=== PATIENT | male | born 1950 | race Caucasian/White ===

== ENCOUNTER → 2023-10-03 09:51 | Outpatient (REF) | payer MEDICARE, OTHER, SELFPAY | LOC: RST 09:51 | PROVIDERS: ATTENDING PHYSICIAN Nurse Practitioner Family | DX: Z00.00 Encounter for general adult medical examination without abnormal findings (principal); R13.10 Dysphagia, unspecified; R07.89 Other chest pain; R05.3 Chronic cough | CPT/HCPCS: 71046; 74230; 92611 ==

== ENCOUNTER → 2023-10-24 10:06 | Outpatient (REF) | payer MEDICARE, OTHER, SELFPAY | LOC: RAD 10:06 | PROVIDERS: ATTENDING PHYSICIAN Nurse Practitioner Family | DX: N40.1 Benign prostatic hyperplasia with lower urinary tract symptoms (principal) | CPT/HCPCS: 76872 ==

== ENCOUNTER → 2024-05-28 12:45 | Outpatient (REF) | payer MEDICARE, OTHER, SELFPAY | LOC: MRI 3T 12:45 | PROVIDERS: ATTENDING PHYSICIAN Surgery; FAMILY PHYSICIAN Internal Medicine | DX: N42.9 Disorder of prostate, unspecified (principal) | CPT/HCPCS: 72197; A9575 ==

== ENCOUNTER → 2024-07-03 10:39 | Outpatient (REF) | payer MEDICARE, OTHER, SELFPAY | LOC: CLAB 10:39 | PROVIDERS: ATTENDING PHYSICIAN Surgery | DX: N42.9 Disorder of prostate, unspecified (principal) | CPT/HCPCS: 88305 ==

== ENCOUNTER → 2024-07-29 09:39 | Outpatient (REF) | payer MEDICARE, OTHER, SELFPAY | LOC: RCS 09:39 | PROVIDERS: ATTENDING PHYSICIAN Internal Medicine Cardiovascular Disease; FAMILY PHYSICIAN Internal Medicine | DX: I25.118 Atherosclerotic heart disease of native coronary artery with other forms of angina pectoris (principal) | CPT/HCPCS: 93017; 93350 ==

== ENCOUNTER 2024-09-15 06:06 | Outpatient (RCR) | payer MEDICARE, OTHER, SELFPAY | END 2024-09-15 23:59 | disposition home or self-care (01) | LOC: RPT 06:06 | PROVIDERS: ATTENDING PHYSICIAN Specialist; FAMILY PHYSICIAN Internal Medicine | DX: C61 Malignant neoplasm of prostate (principal); M62.89 Other specified disorders of muscle; Z73.6 Limitation of activities due to disability; R10.2 Pelvic and perineal pain | CPT/HCPCS: 97163; 97530 ==

== ENCOUNTER 2024-09-28 11:37 | Outpatient (RCR) | payer MEDICARE, OTHER, SELFPAY | END 2024-09-28 23:59 | disposition home or self-care (01) | LOC: RPT 11:37 | PROVIDERS: ATTENDING PHYSICIAN Specialist; FAMILY PHYSICIAN Internal Medicine | DX: C61 Malignant neoplasm of prostate (principal); M62.89 Other specified disorders of muscle; Z73.6 Limitation of activities due to disability; R10.2 Pelvic and perineal pain | CPT/HCPCS: 97140; 97530 ==

== ENCOUNTER 2024-10-06 06:11 | Inpatient (IN) | payer MEDICARE, OTHER, SELFPAY ==
[2024-09-29 11:04] LABS: Hematocrit 45.7 % (39.0-52.0); Hemoglobin 15.6 g/dL (13.0-18.0); Mean Corp Hgb Conc. 34.1 g/dL (33.0-37.0); Mean Corpuscular Hgb 30.8 pg (27.0-31.0); Mean Corpuscular Volume 90.3 fL (80.0-94.0); Mean Platelet Volume 11.1 fL (7.4-10.4); Platelet Count 167 10^3/uL (130-400); Red Blood Cell Count 5.06 10^6/uL (4.70-6.10); Red Cell Dist. Width 12.7 % (11.5-14.5)
[2024-09-29 11:19] LABS: INR 1.03; PT 13.8 Sec (11.4-14.6)
[2024-09-29 11:20] LABS: APTT 27.9 Sec (23.4-35.0)
[2024-09-29 12:00] LABS: Blood Urea Nitrogen 19 mg/dl (9-20); Calcium 10.1 mg/dl (8.4-10.2); Carbon Dioxide 29 mmol/L (22-30); Chloride 103 mmol/L (98-107); Glucose 144 mg/dl (70-99); Potassium 4.7 mmol/L (3.5-5.1); Sodium 139 mmol/L (135-145); eGFR > 60.00
[2024-09-30 13:54] VITALS: BMI 23.1
[2024-10-06] VITALS (18 sets, daily range): BP systolic 114–141; BP diastolic 58–82; BMI 23.1
[2024-10-06 06:55] LABS: Glucose - Point of Care 139 mg/dl (70-99)
[2024-10-06] MEDS: NORMOSOL-R/PLASMALYTE-A 1000 IV ×3 (07:03→20:59)
[2024-10-06] MEDS: NEBCIN 480 MG/100 ML ENEMA 1 BOTTLE RECTAL (07:04)
[2024-10-06] MEDS: TYLENOL 1000 MG PO (07:16)
--- NOTE | 2024-10-06 09:42 | W.IMMPOSTOP ---
Surgical Immed Post Op Note
-
Primary Surgeon: Mary
Assisting Surgeon: Laurel
Pre-op Diagnosis: Prostate cancer
Post-op Diagnosis: Same
Procedure Performed: Radical perineal prostatectomy
Anesthesia Type: GET
Specimen / Cultures: prostate with adnexa, bladder neck and urethral margins
Estimated Blood Loss: 100ml
Complications: None
--- NOTE | 2024-10-06 09:43 | W.IMMPOSTOP ---
Surgical Immed Post Op Note
-
Primary Surgeon: Mary
Assisting Surgeon: Laurel
Pre-op Diagnosis: Prostate cancer
Post-op Diagnosis: Same
Procedure Performed: Radical perineal prostatectomy
Anesthesia Type: GET
Specimen / Cultures: Prostate, bladder neck and urethral margins
Estimated Blood Loss: 100 ml
Complications: None
[2024-10-06 10:00] LABS: Glucose - Point of Care 174 mg/dl (70-99)
[2024-10-06] MEDS: DILAUDID 0.25 MG IV (10:17)
[2024-10-06 10:21] LABS: Hematocrit 42.7 % (39.0-52.0); Hemoglobin 14.7 g/dL (13.0-18.0)
[2024-10-06 10:43] LABS: Blood Urea Nitrogen 18 mg/dl (9-20); Calcium 8.9 mg/dl (8.4-10.2); Carbon Dioxide 23 mmol/L (22-30); Chloride 104 mmol/L (98-107); Estimated Creatinine Clearance 106 ml/min; Glucose 202 mg/dl (70-99); Potassium 4.7 mmol/L (3.5-5.1); Sodium 136 mmol/L (135-145); eGFR > 60.00
[2024-10-06] MEDS: COLACE PO (11:30)
[2024-10-06] MEDS: TORADOL IV (13:04)
--- NOTE | 2024-10-06 14:41 | PTCARENOTE ---
Received patient from PACU via bed around 1230 in stable condition. Urinary catheter draining blueish green urine. Dressing to perineum with sanguineous drainage. Patient denied pain at this time. at bedside. Call dewitt in reach.
[2024-10-06] MEDS: COLACE 100 MG PO (15:19)
[2024-10-06] MEDS: TORADOL 15 MG IV ×2 (15:19→21:00)
[2024-10-06] MEDS: POLYSPORIN/DOUBLE ANTIBIOTIC 1 APPLIC TOPICAL (20:25)
[2024-10-06] MEDS: TOPROL XL 25 MG PO (20:25)
[2024-10-06] MEDS: ZESTRIL 10 MG PO (21:00)
[2024-10-06] MEDS: TYLENOL 650 MG PO (22:30)
[2024-10-06] MEDS: VALIUM INJECTION 5 MG IV (22:31)
[2024-10-07 03:35] VITALS: BP 107/58
[2024-10-07] MEDS: TORADOL 15 MG IV ×3 (04:22→15:44)
[2024-10-07 06:56] LABS: Hemoglobin 13.5 g/dL (13.0-18.0); Mean Corp Hgb Conc. 35.5 g/dL (33.0-37.0); Mean Corpuscular Hgb 31.4 pg (27.0-31.0); Mean Corpuscular Volume 88.4 fL (80.0-94.0); Mean Platelet Volume 11.4 fL (7.4-10.4); Platelet Count 152 10^3/uL (130-400); Red Cell Dist. Width 12.4 % (11.5-14.5); White Blood Cell Count 12.5 10^3/uL (4.8-10.8)
[2024-10-07 07:00] VITALS: BP 109/61
[2024-10-07 07:37] LABS: Blood Urea Nitrogen 18 mg/dl (9-20); Carbon Dioxide 24 mmol/L (22-30); Chloride 104 mmol/L (98-107); Estimated Creatinine Clearance 106 ml/min; Glucose 152 mg/dl (70-99); Potassium 4.4 mmol/L (3.5-5.1); Sodium 136 mmol/L (135-145); eGFR > 60.00
[2024-10-07] MEDS: COLACE 100 MG PO ×3 (08:37→15:44)
[2024-10-07] MEDS: TOPROL XL 25 MG PO ×2 (08:37→20:12)
[2024-10-07] MEDS: PROTONIX 20 MG PO (08:37)
[2024-10-07] MEDS: POLYSPORIN/DOUBLE ANTIBIOTIC 1 APPLIC TOPICAL ×2 (08:38→20:07)
[2024-10-07] MEDS: LEVAQUIN 100 IV (08:38)
--- NOTE | 2024-10-07 08:57 | CM ---
Cm met with patient in room. CM confirmed demographics. Patient lives independently with . Patient does not have a history of VN, SNF or DME. Patient is active with his PCP. Patient uses [facility] for medication services.
Patient is agreeable to VN. Referral sent to [facility] Admission RN.
PLAN: Home with VN.
--- NOTE | 2024-10-07 10:11 | W.PN.SURGUPD ---
Surgical Update
Surgical Update
Stable 1 day s/p radical perineal prostatectomy
Labs OK
Afeb
VSS
Flatus
---
Urine clear
Incision clean
Deedee drain in place
Plan:
Increase activity
Anticipate discharge 10/08/24
[2024-10-07] MEDS: NORMOSOL-R/PLASMALYTE-A IV ×2 (10:29→15:44)
[2024-10-07 11:20] VITALS: BP 106/48
--- NOTE | 2024-10-07 12:30 | VNURNOTE ---
Home Health Liaison met with patient at bedside to discuss [facility] nurse/therapy, visits, schedule and homebound status. Patient is agreeable and understands that visits at home will be 2-3 x per week to assess and teach medical and gupta management.
[facility] after [facility] .
[facility]
[2024-10-07 15:10] VITALS: BP 116/56
[2024-10-07] MEDS: FLUSH (NSS) 2 FLUSH IV (15:45)
[2024-10-07 18:12] LABS: Hepatitis C Antibody Negative (Negative)
[2024-10-07] MEDS: ZESTRIL 10 MG PO (22:01)
[2024-10-07] MEDS: TYLENOL 650 MG PO (22:15)
[2024-10-07 23:00] VITALS: BP 123/64
[2024-10-08 07:40] VITALS: BP 165/78
[2024-10-08] MEDS: COLACE 100 MG PO ×2 (07:59→11:45)
[2024-10-08] MEDS: TOPROL XL 25 MG PO (07:59)
[2024-10-08] MEDS: POLYSPORIN/DOUBLE ANTIBIOTIC 1 APPLIC TOPICAL (08:00)
[2024-10-08] MEDS: LEVAQUIN 100 IV (08:00)
[2024-10-08] MEDS: PERCOCET 5/325 1 TABLET PO (08:03)
--- NOTE | 2024-10-08 08:53 | W.DS.TRANS ---
DC Summary - Software Support Engineer
-
Discharge Instructions:
Sleep Apnea Risk Intermediate
Instructions:
Stand-Alone Forms:
Changes to Home Medications: No
Discharge Medications:
DC Medications w/original date entered in [employer] by [employer]
aspirin 81 mg capsule 81 mg PO DAILY Blood Clot Prevention/Tx 09/30/24
chromium 1,000 mcg tablet 500 mcg PO DAILY Supplement 09/30/24
cinnamon bark 500 mg capsule (Cinnamon) 1,000 mg PO DAILY Supplement 09/30/24
lisinopril 10 mg tablet 10 mg PO HS Blood Pressure 09/30/24
magnesium citrate 300 ml PO PRE OP Gastrointestinal Issue 09/30/24
metoprolol succinate 50 mg tablet,extended release 24 hr 25 mg PO BID Blood Pressure 09/30/24
pantoprazole 20 mg tablet,delayed release 20 mg PO Q48H GERD 09/30/24
red yeast rice 600 mg tablet 1,200 mg PO DAILY Supplement 09/30/24
Home Medication Changes
Pending Results: No
--- NOTE | 2024-10-08 10:32 | CM ---
Cm reviewed medical records. Plan for discharge today.
PLAN: Home with [facility]
--- NOTE | 2024-10-08 11:02 | W.PN.UPDATE ---
Update Note
Progress Note Update
Patient seen prior to discharge - minimal pain this AM, just had breakfast.
In good spirits and eager to go home.
Urine clear in tubing.
Perineal incision (Deedee removed) w/ scant drainage healing well.
- VN confirmed for catheter and wound care
- Discharge home w/ Woo
- VN to remove Woo in AM 10/19 followed by PVR in office to confirm emptying
- Post-op wound care and instructions re-reviewed w/ patient
[2024-10-08 12:23] VITALS: BP 120/56
== END 2024-10-08 13:09 | disposition home health service (06) | DRG 708 ==
LOC: 2 SOUTH 06:11
PROVIDERS: ADMITTING PHYSICIAN Specialist; FAMILY PHYSICIAN Internal Medicine
PROC: 0TQC0ZZ Repair Bladder Neck, Open Approach (ICD-10-PCS; 2024-10-06)
PROC: 0VT00ZZ Resection of Prostate, Open Approach (ICD-10-PCS; 2024-10-06)
PROC: 0VT30ZZ Resection of Bilateral Seminal Vesicles, Open Approach (ICD-10-PCS; 2024-10-06)
PROC: 0VTQ0ZZ Resection of Bilateral Vas Deferens, Open Approach (ICD-10-PCS; 2024-10-06)
DX: C61 Malignant neoplasm of prostate (principal)
CPT/HCPCS: 88305; 88309; 88332; 36415; 80048; 82962; 85014; 85018; 85027; 85610; 85730; 86803; 86850; 86900; 86901; 88331; A4648

== ENCOUNTER → 2024-10-27 16:46 | Outpatient (REF) | payer MEDICARE, OTHER, SELFPAY ==
[2024-10-27 17:09] LABS: Urine Albumin Negative (Neg - Trace); Urine Bilirubin Negative (Negative); Urine Character Clear (Clear); Urine Color Yellow; Urine Glucose Negative (Negative); Urine Ketone Negative (Negative); Urine Leukocyte Negative (Negative); Urine Nitrite Negative (Negative); Urine Occult Blood Negative (Negative); Urine Urobilinogen Negative (Neg - 1+)
== END ==
LOC: CLAB 16:46
PROVIDERS: ATTENDING PHYSICIAN Specialist; FAMILY PHYSICIAN Internal Medicine
DX: C61 Malignant neoplasm of prostate (principal); Z90.79 Acquired absence of other genital organ(s); Z46.6 Encounter for fitting and adjustment of urinary device
CPT/HCPCS: 81003

== ENCOUNTER 2024-11-17 09:59 | Outpatient (RCR) | payer MEDICARE, OTHER, SELFPAY | END 2024-11-17 23:59 | disposition home or self-care (01) | LOC: RPT 09:59 | PROVIDERS: ATTENDING PHYSICIAN Specialist; FAMILY PHYSICIAN Internal Medicine | DX: C61 Malignant neoplasm of prostate (principal); M62.89 Other specified disorders of muscle; Z73.6 Limitation of activities due to disability; R10.2 Pelvic and perineal pain; N39.3 Stress incontinence (female) (male) | CPT/HCPCS: 97140; 97164; 97530 ==

== ENCOUNTER 2024-12-15 10:07 | Outpatient (RCR) | payer MEDICARE, OTHER, SELFPAY | END 2024-12-15 23:59 | disposition home or self-care (01) | LOC: RPT 10:07 | PROVIDERS: ATTENDING PHYSICIAN Specialist; FAMILY PHYSICIAN Internal Medicine | DX: C61 Malignant neoplasm of prostate (principal); M62.89 Other specified disorders of muscle; R10.2 Pelvic and perineal pain; N39.3 Stress incontinence (female) (male); Z73.6 Limitation of activities due to disability | CPT/HCPCS: 97014; 97110; 97112; 97140; 97530 ==

== ENCOUNTER 2025-01-14 13:21 | Outpatient (RCR) | payer MEDICARE, OTHER, SELFPAY | END 2025-01-14 23:59 | disposition home or self-care (01) | LOC: RPT 13:21 | PROVIDERS: ATTENDING PHYSICIAN Specialist; FAMILY PHYSICIAN Internal Medicine | DX: C61 Malignant neoplasm of prostate (principal); M62.89 Other specified disorders of muscle; R10.2 Pelvic and perineal pain; N39.3 Stress incontinence (female) (male); Z73.6 Limitation of activities due to disability | CPT/HCPCS: 97014; 97112; 97140; 97530 ==

== ENCOUNTER 2025-02-02 10:03 | Outpatient (RCR) | payer MEDICARE, OTHER, SELFPAY | END 2025-02-02 23:59 | disposition home or self-care (01) | LOC: RPT 10:03 | PROVIDERS: ATTENDING PHYSICIAN Specialist; FAMILY PHYSICIAN Internal Medicine | DX: C61 Malignant neoplasm of prostate (principal); M62.89 Other specified disorders of muscle; R10.2 Pelvic and perineal pain; N39.3 Stress incontinence (female) (male); Z73.6 Limitation of activities due to disability | CPT/HCPCS: 97014; 97112; 97140; 97530 ==

== ENCOUNTER 2025-04-23 09:10 | Outpatient (RCR) | payer MEDICARE, OTHER, SELFPAY | END 2025-04-23 23:59 | disposition home or self-care (01) | LOC: RPT 09:10 | PROVIDERS: ATTENDING PHYSICIAN Specialist; FAMILY PHYSICIAN Internal Medicine | DX: C61 Malignant neoplasm of prostate (principal); M62.89 Other specified disorders of muscle; R10.2 Pelvic and perineal pain; R10.20 Pelvic and perineal pain unspecified side; N39.3 Stress incontinence (female) (male); Z73.6 Limitation of activities due to disability | CPT/HCPCS: 97014; 97110; 97140; 97530 ==

== ENCOUNTER 2025-05-06 12:24 | Outpatient (RCR) | payer MEDICARE, OTHER, SELFPAY | END 2025-05-06 23:59 | disposition home or self-care (01) | LOC: RPT 12:24 | PROVIDERS: ATTENDING PHYSICIAN Specialist; FAMILY PHYSICIAN Internal Medicine | DX: C61 Malignant neoplasm of prostate (principal); M62.89 Other specified disorders of muscle; R10.2 Pelvic and perineal pain; N39.3 Stress incontinence (female) (male); R10.20 Pelvic and perineal pain unspecified side; Z73.6 Limitation of activities due to disability | CPT/HCPCS: 97014; 97110; 97140; 97530 ==

== ENCOUNTER 2025-06-16 09:36 | Outpatient (RCR) | payer MEDICARE, OTHER, SELFPAY | END 2025-06-16 23:59 | disposition home or self-care (01) | LOC: RPT 09:36 | PROVIDERS: ATTENDING PHYSICIAN Specialist; FAMILY PHYSICIAN Internal Medicine | DX: C61 Malignant neoplasm of prostate (principal); M62.89 Other specified disorders of muscle; N39.3 Stress incontinence (female) (male); Z73.6 Limitation of activities due to disability; R10.20 Pelvic and perineal pain unspecified side; R10.2 Pelvic and perineal pain | CPT/HCPCS: 97140; 97530 ==